=== PATIENT | female | born 1995 | race American Indian/Alaskan Native ===

== ENCOUNTER 2018-03-30 05:00 | Emergency (ER) | payer OTHER ==
[2018-03-30] MEDS ORDERED: Sodium Chloride 0.9% 1,000 ML IV ONE (05:31)
[2018-03-30] MEDS ORDERED: Sodium Chloride 0.9% 1,000 ML ONE (05:43)
--- NOTE | 2018-03-30 05:46 | C.PDOC ---
History Of Present Illness 22 year old female presents to the ED for evaluation of abdominal pain, nausea, vomiting, and diarrhea which began after she ate at a buffet earlier today. Patient reports sharp epigastric pain, having three episodes of vomiting, and several episodes of brown watery diarrhea. She denies fever, chills, back pain, or any urinary symptoms. Time Seen by Provider: 03/30/18 05:19 Chief Complaint (Nursing): GI Problem History Per: Patient History/Exam Limitations: no limitations Onset/Duration Of Symptoms: Hrs Current Symptoms Are (Timing): Still Present Quality Of Discomfort: "Pain" Associated Symptoms: Nausea, Vomiting, Diarrhea. denies: Fever, Chills, Back Pain, Urinary Symptoms Additional History Per: Patient Abnormal Vaginal Bleeding: No Past Medical History Reviewed: Historical Data, Nursing Documentation, Vital Signs Vital Signs: Last Vital Signs Temp 98.2 F 03/30/18 05:06 Pulse 116 H 03/30/18 05:06 Resp 20 03/30/18 05:06 BP 122/83 03/30/18 05:06 Pulse Ox 100 03/30/18 05:06 - Medical History PMH: No Chronic Diseases Surgical History: No Surg Hx Family History: States: Unknown Family Hx - Social History Hx Alcohol Use: No Hx Substance Use: No - Immunization History Hx Tetanus Toxoid Vaccination: No Hx Influenza Vaccination: No Hx Pneumococcal Vaccination: No Review Of Systems Constitutional: Negative for: Fever, Chills Gastrointestinal: Positive for: Nausea, Vomiting, Abdominal Pain, Diarrhea Genitourinary: Negative for: Dysuria, Frequency, Hematuria Musculoskeletal: Negative for: Back Pain Physical Exam - Physical Exam Appears: Non-toxic, No Acute Distress, Other (mildly uncomfortable ) Skin: Normal Color, Warm, Dry Head: Atraumatic, Normacephalic Eye(s): bilateral: Normal Inspection Oral Mucosa: Moist Neck: Supple Chest: Symmetrical, No Deformity, No Tenderness Cardiovascular: Rhythm Regular, No Murmur, Other (tachycardic ) Respiratory: Normal Breath Sounds, No Rales, No Rhonchi, No Wheezing Gastrointestinal/Abdominal: Soft, Tenderness (epigastric ), No Guarding, No Rebound Extremity: Normal ROM, Capillary Refill (less than 2 seconds ) Neurological/Psych: Oriented x3, Normal Speech, Normal Cognition ED Course And Treatment - Laboratory Results Result Diagrams: 03/30/18 05:42 03/30/18 05:42 O2 Sat by Pulse Oximetry: 100 (on RA) Pulse Ox Interpretation: Normal Medical Decision Making Medical Decision Making: Progress: Bloodwork and urinalysis ordered and reviewed. Pepcid IVP, Zofran IVP and IV Fluids given. 0644 pt feeling better. decreased pain in abdomen, soft. nt, nt on exam. no episodes of vomiting or diarrhea while in ed. labs wnl. will give po challenge and d/c home. 0701 pt tolerated po challenge, d/c home Disposition Counseled Patient/Family Regarding: Studies Performed, Diagnosis, Need For Followup, Rx Given - Disposition Referrals: [facility] [Outside] [facility] [Outside] Disposition: HOME/ ROUTINE Disposition Time: 06:46 Condition: IMPROVED Additional Instructions: Drink clear fluids in small amounts at a time; slowly add on plain white rice, toast. crackers as tolerated. Take ondansetron and pepcid as prescribed. Follow up in Medical clinic or call [facility] to help you find a doctor. Return to ER if persistently vomiting and diarrhea; if only diarrhea, need to make up fluids by drinking more fluids or for any other concerns. Prescriptions: Famotidine [Pepcid] 20 mg PO DAILY #14 tab Ondansetron ODT [Zofran ODT] 4 mg PO TID #12 odt Instructions: Viral Gastroenteritis, Adult (DC) Forms: General Discharge Instructions, [facility] (Mongolian), Work Excuse - Clinical Impression Clinical Impression: Gastroenteritis - PA / [employer]S MANAGER / Resident Statement MD/DO has reviewed & agrees with the documentation as recorded. - Scribe Statement The provider has reviewed the documentation as recorded by the Scribe (Bethany Spivey) All medical record entries made by the Scribe were at my direction and personally dictated by me. I have reviewed the chart and agree that the record accurately reflects my personal performance of the history, physical exam, medical decision making, and the department course for this patient. I have also personally directed, reviewed, and agree with the discharge instructions and disposition.
[2018-03-30 05:59] LABS: BASO # 0.1 K/uL (0.0-0.2); BASO % 0.4 % (0.0-2.0); EOS # 0.2 K/uL (0.0-0.7); EOS % 1.6 % (0.0-4.0); HEMOGLOBIN 14.4 g/dL (11.0-16.0); LYMPH # 1.5 K/uL (1.0-4.3); LYMPH % 10.2 % (20.0-40.0); MEAN CELL VOLUME 92.9 fL (81.0-99.0); MEAN CORPUSCULAR HEMOGLOBIN 30.7 pg (27.0-31.0); MEAN PLATELET VOLUME 8.2 fL (7.2-11.7); MONO % 6.4 % (0.0-10.0); NEUT # 12.2 K/uL (1.8-7.0); NEUT % 81.4 % (50.0-75.0); NRBC % 0.2 % (0.0-2.0); RBC 4.71 Mil/uL (3.80-5.20); RED CELL DISTRIBUTION WIDTH 12.9 % (11.5-14.5); WHITE BLOOD COUNT 14.9 K/uL (4.8-10.8)
[2018-03-30 06:24] LABS: ALB/GLOB RATIO 1.3 (1.0-2.1); ALBUMIN 4.2 g/dL (3.5-5.0); ALT/SGPT 18 U/L (9-52); AST/SGOT 27 U/L (14-36); BLOOD UREA NITROGEN 14 mg/dL (7-17); CALCIUM 8.3 mg/dl (8.6-10.4); GFR NON-AFRICAN AMERICAN > 60; LIPASE 35 U/L (23-300)
[2018-03-30 06:54] LABS: SQUAMOUS EPITHIAL 2 /hpf (0-5); URINE BILIRUBIN NEGATIVE (NEGATIVE); URINE BLOOD NEGATIVE (NEGATIVE); URINE CLARITY Clear (Clear); URINE COLOR Yellow (YELLOW); URINE GLUCOSE (UA) NORMAL (Normal); URINE LEUKOCYTE ESTERASE NEG Leu/uL (Negative); URINE PROTEIN NEGATIVE (NEGATIVE); URINE UROBILINOGEN NORMAL mg/dL (0.2-1.0)
[2018-03-30 07:01] VITALS: BP 120/80; PULSE 84; RESP 14; TEMP 98; O2SAT 100
== END 2018-03-30 07:00 | disposition home or self-care (01) ==
LOC: C.ER 05:00
DX: K52.9 Noninfective gastroenteritis and colitis, unspecified (principal)
CPT/HCPCS: 80053; 81001; 81025; 83690; 85025; 96374; 96375; 99284; J2405; J7030